=== PATIENT | female | born 1975 | race Caucasian/White ===

== ENCOUNTER 2023-10-06 18:11 | Inpatient (IN) | payer BC ==
[~2023-10-06] VITALS: Ht 170.2 cm; Wt 93.0 kg
[2023-10-06 18:27] VITALS: BP_SYST 111; PULSE 74; RESP 16; TEMP 99.1; O2SAT 98
[2023-10-06] MEDS: NACL 0.9% 1,000 ML IV ONE (18:52)
[2023-10-06 18:56] LABS: BASOPHILS # (AUTO) 0.1 K/uL (0.0-0.2); BASOPHILS % (AUTO) 1.1 % (0.0-2.0); EOSINOPHILS # (AUTO) 0.2 K/uL (0.0-0.4); HEMATOCRIT 22.5 % (36-48); HEMOGLOBIN 7.2 g/dL (12.0-16.0); LYMPHOCYTES # (AUTO) 2.1 K/uL (1.0-5.5); LYMPHOCYTES % (AUTO) 29.6 % (20.5-51.5); MEAN CORPUSCULAR HEMOGLOBIN 20 pg (27-31); MEAN CORPUSCULAR HGB CONC 32 % (32-36); MEAN CORPUSCULAR VOLUME 63 fL (79.0-98.0); MONOCYTES # (AUTO) 0.7 K/uL (0.0-1.0); MONOCYTES % (AUTO) 9.3 % (1.7-9.3); NEUTROPHILS # (AUTO) 4.1 K/uL (1.8-7.7); PLATELET COUNT (AUTO) 256 K/uL (130-430); RED BLOOD CELL COUNT(AUTO) 3.58 MIL/uL (4.2-6.2); RED CELL DISTRIBUTION WIDTH 20.2 % (9.0-15.0); WHITE BLOOD COUNT (AUTO) 7.2 K/uL (4.8-10.8)
[2023-10-06 19:14] LABS: CALCIUM 7.9 mg/dL (8.4-11.0); CREATININE 0.72 mg/dL (0.55-1.30); POTASSIUM 3.8 mmol/L (3.5-5.1)
[2023-10-06 19:18] LABS: SERUM HCG (QUALITATIVE) NEGATIVE (NEGATIVE)
[2023-10-06 20:00] VITALS: O2SAT 100
[2023-10-06 20:00] LABS: ANISOCYTOSIS 2+; HYPOCHROMASIA 2+; OVALOCYTES MODERATE; POLYCHROMASIA 1+
[2023-10-06 21:02] VITALS: O2SAT 100
[2023-10-06] MEDS ORDERED: ONDANSETRON HCL 4 MG/2 ML VIAL IVP PRN (22:00)
[2023-10-06] MEDS ORDERED: ALBUTEROL SULFATE 0.083% 2.5 MG/3 ML VIAL.NEB INH PRN (22:00)
[2023-10-06] MEDS ORDERED: HYDROcodone/ACETAMIN 5-325 MG TAB (NORCO/ VICODIN) PO PRN (22:00)
[2023-10-06] MEDS ORDERED: NALOXONE HCL 0.4 MG/ML AMP (NARCAN) IVP PRN (22:00)
[2023-10-06] MEDS ORDERED: HYDROcodone/ACETAMIN 10-325 MG TAB PO PRN (22:00)
[2023-10-06] MEDS ORDERED: MORPHINE 2 MG/ML INJ. SYRINGE IVP PRN (22:00)
[2023-10-06 22:10] VITALS: BP_SYST 111; PULSE 74; O2SAT 98
[2023-10-06] MEDS ORDERED: MELATONIN 3 MG TABLET PO PRN (22:45)
[2023-10-06 23:39] VITALS: BP_SYST 136; PULSE 76; RESP 18; TEMP 99.2; O2SAT 100
[2023-10-07] VITALS (9 sets, daily range): BP systolic 116–132; PULSE 68–88; RESP 16–18; TEMP 97.6–98.8; O2SAT 96–99
[2023-10-07] MEDS: ACETAMINOPHEN 325 MG TABLET PO PRN (00:19)
[2023-10-07 05:17] LABS: BASOPHILS % (AUTO) 0.6 % (0.0-2.0); EOSINOPHILS # (AUTO) 0.2 K/uL (0.0-0.4); EOSINOPHILS % (AUTO) 3.1 % (0.0-4.0); LYMPHOCYTES # (AUTO) 2.1 K/uL (1.0-5.5); LYMPHOCYTES % (AUTO) 29.4 % (20.5-51.5); MEAN CORPUSCULAR HEMOGLOBIN 20 pg (27-31); MEAN CORPUSCULAR HGB CONC 31 % (32-36); MEAN CORPUSCULAR VOLUME 64 fL (79.0-98.0); MONOCYTES # (AUTO) 0.6 K/uL (0.0-1.0); MONOCYTES % (AUTO) 8.5 % (1.7-9.3); NEUTROPHILS # (AUTO) 4.3 K/uL (1.8-7.7); NEUTROPHILS % (AUTO) 58.4 % (40.0-70.0); PLATELET COUNT (AUTO) 253 K/uL (130-430); RED BLOOD CELL COUNT(AUTO) 3.39 MIL/uL (4.2-6.2); RED CELL DISTRIBUTION WIDTH 20.3 % (9.0-15.0); WHITE BLOOD COUNT (AUTO) 7.3 K/uL (4.8-10.8)
[2023-10-07 05:27] LABS: ALBUMIN 2.7 g/dL (3.4-4.8); CALCIUM 7.7 mg/dL (8.4-11.0); CREATININE 0.71 mg/dL (0.55-1.30); POTASSIUM 3.8 mmol/L (3.5-5.1); TOTAL BILIRUBIN 0.2 mg/dL (0.0-1.0); TOTAL PROTEIN, SERUM 5.9 g/dL (6.4-8.3)
[2023-10-07 05:33] LABS: HEMATOCRIT 21.8 % (36-48); HEMOGLOBIN 6.8 g/dL (12.0-16.0)
[2023-10-07 10:16] LABS: HEMATOCRIT 29.3 % (36-48); HEMOGLOBIN 9.2 g/dL (12.0-16.0)
[2023-10-08 00:05] VITALS: BP_SYST 120; PULSE 69; RESP 18; TEMP 98.6; O2SAT 99
[2023-10-08 05:21] LABS: ALBUMIN 2.9 g/dL (3.4-4.8); CALCIUM 8.3 mg/dL (8.4-11.0); CREATININE 0.79 mg/dL (0.55-1.30); POTASSIUM 4.1 mmol/L (3.5-5.1); TOTAL BILIRUBIN 0.3 mg/dL (0.0-1.0); TOTAL PROTEIN, SERUM 6.4 g/dL (6.4-8.3)
[2023-10-08 05:32] LABS: BASOPHILS # (AUTO) 0.1 K/uL (0.0-0.2); BASOPHILS % (AUTO) 0.7 % (0.0-2.0); EOSINOPHILS # (AUTO) 0.3 K/uL (0.0-0.4); EOSINOPHILS % (AUTO) 3.8 % (0.0-4.0); HEMATOCRIT 27.9 % (36-48); HEMOGLOBIN 8.8 g/dL (12.0-16.0); LYMPHOCYTES # (AUTO) 2.3 K/uL (1.0-5.5); LYMPHOCYTES % (AUTO) 25.7 % (20.5-51.5); MEAN CORPUSCULAR HEMOGLOBIN 21 pg (27-31); MEAN CORPUSCULAR HGB CONC 31 % (32-36); MEAN CORPUSCULAR VOLUME 68 fL (79.0-98.0); MONOCYTES # (AUTO) 0.9 K/uL (0.0-1.0); MONOCYTES % (AUTO) 10.1 % (1.7-9.3); NEUTROPHILS # (AUTO) 5.4 K/uL (1.8-7.7); NEUTROPHILS % (AUTO) 59.7 % (40.0-70.0); PLATELET COUNT (AUTO) 258 K/uL (130-430); RED BLOOD CELL COUNT(AUTO) 4.11 MIL/uL (4.2-6.2); RED CELL DISTRIBUTION WIDTH 24.6 % (9.0-15.0)
[2023-10-08 08:00] VITALS: BP_SYST 137; PULSE 69; RESP 18; TEMP 98.5; O2SAT 99
[2023-10-08 09:10] VITALS: O2SAT 99
[2023-10-08 11:31] VITALS: BP_SYST 129; PULSE 73; RESP 16; TEMP 97.1; O2SAT 99
[2023-10-08] MEDS ORDERED: MEDR10TA72 PO (11:40)
[2023-10-08] MEDS ORDERED: FERR236T3 PO (11:40)
[2023-10-08] MEDS ORDERED: DOCU-144 PO (11:40)
[2023-10-08 11:55] VITALS: BP_SYST 137; PULSE 72; RESP 16; TEMP 98.1; O2SAT 99
== END 2023-10-08 12:18 | disposition home or self-care (01) | DRG 760 ==
LOC: SED 18:11 → STU 19:50 → SMU 10-08 03:00
PROVIDERS: ADMIT Family Medicine; ATTEND Family Medicine
PROC: 30233N1 Transfusion of Nonautologous Red Blood Cells into Peripheral Vein, Percutaneous Approach (ICD-10-PCS; principal; 2023-10-07)
DX: D25.9 Leiomyoma of uterus, unspecified (principal); D62 Acute posthemorrhagic anemia; E66.9 Obesity, unspecified; E88.09 Other disorders of plasma-protein metabolism, not elsewhere classified; Z68.32 Body mass index [BMI] 32.0-32.9, adult; Z79.899 Other long term (current) drug therapy; R73.03 Prediabetes
CPT/HCPCS: 36415; 76856; 80048; 80053; 83037; 84703; 85018; 85025; 85610; 85730; 86886; 86900; 86901; 86920; 94070; 94760; 99285; G0378; P9021

== ENCOUNTER 2023-12-07 09:15 | Day surgery (SDC) | payer BC ==
[~2023-12-07] VITALS: Ht 170.2 cm; Wt 93.1 kg
[~2023-12-07 09:15] MED LIST: DOCU-144 PO; FERR236T3 PO; MEDR10TA72 PO
[2023-12-07 10:19] LABS: HCG,QUAL RESULT NEGATIVE (NEGATIVE)
[2023-12-07 11:11] VITALS: O2SAT 100
[2023-12-07] MEDS ORDERED: HYDROmorphone 1 MG/ML INJ. CARTRIDGE IVP PRN (11:15)
[2023-12-07] MEDS ORDERED: ONDANSETRON HCL 4 MG/2 ML VIAL IVP PRN (11:15)
[2023-12-07] MEDS ORDERED: LR 1,000 ML IV ONE (11:15)
[2023-12-07] MEDS ORDERED: METOCLOPRAMIDE HCL 10 MG/2 ML VIAL ONE (11:30)
[2023-12-07] MEDS ORDERED: LR 1,000 ML IV.SOLN IV ONE (11:30)
[2023-12-07] MEDS ORDERED: ceFAZolin SODIUM 1 GM VIAL ONE (11:30)
[2023-12-07] MEDS ORDERED: PROPOFOL 200MG/ 20ML VIAL (DIPRIVAN) IV ONE (11:30)
[2023-12-07] MEDS ORDERED: NS 1000 ML IV.SOLN IV ONE (11:30)
[2023-12-07] MEDS ORDERED: SEVOFLURANE 15 MIN GAS INH ONE (11:30)
[2023-12-07] MEDS ORDERED: GLYCOPYRROLATE 0.2 MG/ML VIAL ONE (11:30)
[2023-12-07] MEDS ORDERED: ONDANSETRON HCL 4 MG/2 ML VIAL ONE (11:30)
[2023-12-07 14:48] VITALS: BP_SYST 141; PULSE 60; RESP 18
== END 2023-12-07 14:13 | disposition home or self-care (01) ==
LOC: SDS 09:15 → SMU 09:17 → SDS 14:13
PROVIDERS: ATTEND Obstetrics & Gynecology
DX: N92.0 Excessive and frequent menstruation with regular cycle (principal)
CPT/HCPCS: 87081; 71046; 58563; 84703; J0690; J3490; J2765; J2405; J2704; J7120; J7030